=== PATIENT | male | born 1955 | race Caucasian/White ===

== ENCOUNTER 2016-08-30 23:23 | Inpatient (IN) | payer MEDICARE ==
[~2016-08-30] VITALS: Ht 180.3 cm; Wt 74.3 kg
[2016-08-30 23:23] VITALS: BP 229/124; PULSE 112; RESP 20; TEMP 98.4
[2016-08-30 23:28] VITALS: BP 215/97; PULSE 110; O2SAT 100
[2016-08-30] MEDS ORDERED: insulin (23:33)
[2016-08-30] MEDS ORDERED: SODIUM CHLOR 0.9% 1000 ML INJ 1,000 ML IV SCH (23:48)
[2016-08-31] VITALS (11 sets, daily range): BP systolic 124–224; BP diastolic 83–112; PULSE 88–116; RESP 17–20; TEMP 96.4–99.5; O2SAT 97–100
[2016-08-31] MEDS ORDERED: PROCHLORPERAZINE INJ 10 MG/2 ML VIAL IM ONE
[2016-08-31] MEDS ORDERED: diphenhydrAMINE HCL 50 MG/ML VIAL IV PUSH ONE
[2016-08-31 00:19] LABS: BASOPHIL % 0.2 % (0.0-2.0); EOSINOPHIL % 0.1 % (0.0-4.0); HEMATOCRIT 41.9 % (39.0-51.0); HEMO FLAGS DIFF FINAL; LYMPH % 7.6 % (9.0-44.0); LYMPHOCYTE # 1.2 TH/MM3 (1.0-4.8); MEAN CELL VOLUME 84.5 FL (80.0-100.0); MEAN CORPUSCULAR HEMOGLOBIN 27.8 PG (27.0-34.0); MEAN CORPUSCULAR HGB CONC 32.9 % (32.0-36.0); MONO % 2.3 % (0.0-8.0); NEUT % 89.8 % (16.0-70.0); PLATELET COUNT 253 TH/MM3 (150-450); RED BLOOD COUNT 4.96 MIL/MM3 (4.50-5.90); RED CELL DISTRIBUTION WIDTH 14.5 % (11.6-17.2); WHITE BLOOD COUNT 15.6 TH/MM3 (4.0-11.0)
--- NOTE | 2016-08-31 00:28 | PD ---
HPI Chief Complaint: General Weakness Time Seen by Provider: 23:41 Travel History International Travel<30 days: No Contact w/Intl Traveler<30days: No Traveled to known affect area: No History of Present Illness HPI Is a 60-year-old male with a history of diabetes and gastroparesis who presents to the emergency department with vomiting times today. He states is been worse the past couple days. He's had some abdominal pain with vomiting. Recent multiple previous episodes in the past but is visiting from out of town. He didn't bring any of his medicines with him except for his insulin because he left them by mistake. He is supposed to go back to [place] where he is living now tomorrow. No history of abdominal surgeries. Denies any chest pain shortness of breath or other symptoms. He has had some subjective chills. History Past Medical History Narrative Medical Gastroparesis Diabetes Hypothyroidism Hypertension Tetanus Vaccination: > 5 Years Influenza Vaccination: Yes Social History Alcohol Use: Yes (occ) Tobacco Use: No Allergies-Medications (Allergen,Severity, Reaction): Coded Allergies: No Known Allergies (Unverified , 08/30/16) Reported Meds & Prescriptions Reported Meds & Active Scripts Active Reported [insulin ] Review of Systems Except as stated in HPI: all other systems reviewed are Neg Physical Exam Narrative GENERAL: 60-year-old man, appears a little bit uncomfortable, little clammy, some occasional vomiting. SKIN: Little bit clammy. HEAD: Atraumatic. Normocephalic. EYES: Pupils equal and round. No scleral icterus. No injection or drainage. ENT: No nasal bleeding or discharge. Mucous membranes pink and moist. NECK: Trachea midline. No JVD. CARDIOVASCULAR: Regular rate and rhythm. No murmur appreciated. RESPIRATORY: No accessory muscle use. Clear to auscultation. Breath sounds equal bilaterally. GASTROINTESTINAL: Abdomen soft, non-tender, nondistended. Hepatic and splenic margins not palpable. MUSCULOSKELETAL: No obvious deformities. Data Data Last Documented VS Vital Signs Date Time Temp Pulse Resp B/P Pulse Ox O2 Delivery O2 Flow Rate FiO2 08/31/16 01:07 107 162/88 99 Room Air 08/30/16 23:23 98.4 20 Orders Complete Blood Count With Diff (08/30/16 23:48) Comprehensive Metabolic Panel (08/30/16 23:48) Lipase (08/30/16 23:48) Iv Access Insert/Monitor (08/30/16 23:48) Ecg Monitoring (08/30/16 23:48) Oximetry (08/30/16 23:48) Sodium Chlor 0.9% 1000 Ml Inj (Ns 1000 M (08/30/16 23:48) Prochlorperazine Inj (Compazine Inj) (08/31/16 00:00) Diphenhydramine Inj (Benadryl Inj) (08/31/16 00:00) Enalaprilat Inj (Vasotec Inj) (08/31/16 01:00) Ondansetron Inj (Zofran Inj) (08/31/16 03:15) Admit Order (Ed Use Only) (08/31/16 ) Place In Observation (08/31/16 ) Vital Signs (Adult) Q4H (08/31/16 03:07) Activity Oob With Assistance (08/31/16 03:07) Stain Sprayer / Telemetry .CONTINUOUS (08/31/16 03:07) Diet Npo (08/31/16 Breakfast) Sodium Chlor 0.9% 1000 Ml Inj (Ns 1000 M (08/31/16 03:00) Sodium Chloride 0.9% Flush (Ns Flush) (08/31/16 03:15) Sodium Chloride 0.9% Flush (Ns Flush) (08/31/16 09:00) Ondansetron Inj (Zofran Inj) (08/31/16 03:15) Metoclopramide Inj (Reglan Inj) (08/31/16 03:15) Basic Metabolic Panel (Bmp) (09/01/16 06:00) Complete Blood Count With Diff (09/01/16 06:00) Naloxone Inj (Narcan Inj) (08/31/16 03:15) Labs Laboratory Tests Test 08/31/16 00:00 White Blood Count 15.6 TH/MM3 Red Blood Count 4.96 MIL/MM3 Hemoglobin 13.8 GM/DL Hematocrit 41.9 % Mean Corpuscular Volume 84.5 FL Mean Corpuscular Hemoglobin 27.8 PG Mean Corpuscular Hemoglobin 32.9 % Concent Red Cell Distribution Width 14.5 % Platelet Count 253 TH/MM3 Mean Platelet Volume 8.7 FL Neutrophils (%) (Auto) 89.8 % Lymphocytes (%) (Auto) 7.6 % Monocytes (%) (Auto) 2.3 % Eosinophils (%) (Auto) 0.1 % Basophils (%) (Auto) 0.2 % Neutrophils # (Auto) 14.0 TH/MM3 Lymphocytes # (Auto) 1.2 TH/MM3 Monocytes # (Auto) 0.4 TH/MM3 Eosinophils # (Auto) 0.0 TH/MM3 Basophils # (Auto) 0.0 TH/MM3 CBC Comment DIFF FINAL Differential Comment Sodium Level 144 MEQ/L Potassium Level 3.9 MEQ/L Chloride Level 107 MEQ/L Carbon Dioxide Level 21.7 MEQ/L Anion Gap 15 MEQ/L Blood Urea Nitrogen 39 MG/DL Creatinine 1.31 MG/DL Estimat Glomerular Filtration 55 ML/MIN Rate Random Glucose 175 MG/DL Calcium Level 9.5 MG/DL Total Bilirubin 0.6 MG/DL Aspartate Amino Transf 25 U/L (AST/SGOT) Alanine Aminotransferase 19 U/L (ALT/SGPT) Alkaline Phosphatase 95 U/L Total Protein 8.6 GM/DL Albumin 4.1 GM/DL Lipase 43 U/L [facility] Medical Decision Making Medical Screen Exam Complete: Yes Emergency Medical Condition: Yes Interpretation(s) LABS: CBC remarkable for mild leukocytosis. CMP is remarkable for elevated BUN/creatinine. Glucose is 175. Lipase is 43. Differential Diagnosis Gastroparesis, electrolyte abnormality, obstruction, vomiting, sepsis, other Narrative Course Medical decision making This is a 60-year-old man presents emergency room with gastroparesis and vomiting. History of the same. Membranes medicines by mistake. Looks overall okay, little bit clammy. We'll check labs, IV fluids, antiemetics. FINAL: Patient with continuing intractable nausea vomiting. Labs are unremarkable. We'll plan on admission for symptomatic treatment. Diagnosis Primary Impression: Intractable nausea and vomiting Disposition: DISCHARGE HOME Condition: Stable Billy Bowles MD Aug 31, 2016 00:28
[2016-08-31] MEDS ORDERED: ENALAPRILAT 2.5 MG/2 ML VIAL IV PUSH ONE (01:00)
[2016-08-31 01:03] LABS: ALKALINE PHOSPHATASE 95 U/L (45-117); ALT (GPT) 19 U/L (12-78); TOTAL BILIRUBIN ADULT 0.6 MG/DL (0.2-1.0)
[2016-08-31 01:06] LABS: ANION GAP 15 MEQ/L (5-15); AST (GOT) 25 U/L (15-37); BICARBONATE 21.7 MEQ/L (21.0-32.0); BLOOD UREA NITROGEN 39 MG/DL (7-18); CHLORIDE 107 MEQ/L (98-107); GLOMERULAR FILTRATION RATE 55 ML/MIN (>89); SODIUM (NA) 144 MEQ/L (136-145)
[2016-08-31 01:07] LABS: POTASSIUM 3.9 MEQ/L (3.5-5.1)
[2016-08-31] MEDS ORDERED: ONDANSETRON HCL 4 MG/2 ML VIAL IV PUSH ONE (03:15)
[2016-08-31] MEDS ORDERED: NALOXONE HCL 0.4 MG/ML AMP IV PRN (03:15)
[2016-08-31] MEDS ORDERED: SODIUM CHLORIDE 0.9% FLUSH 10 ML FLUSH IV FLUSH PRN ×2 (03:15)
[2016-08-31] MEDS ORDERED: METOCLOPRAMIDE HCL 10 MG/2 ML VIAL IV PUSH PRN (03:15)
[2016-08-31] MEDS: SODIUM CHLOR 0.9% 1000 ML INJ 1,000 ML IV SCH ×2 (03:24→15:02)
--- NOTE | 2016-08-31 04:39 | HHI.HP ---
[facility] Non-Staff Admission Diagnosis intractable nausea vomiting Diagnoses: (1) Intractable nausea and vomiting Chief Complaint: Nausea and vomiting Travel History International Travel<30 Days: No Contact w/Intl Traveler <30 Da: No Traveled to Known Affected Are: No History of Present Illness Written by Trinh Weber, acting as scribe for Dr. Burnett on 08/31/16 at 04:36. Mr. Moralez is a 60 y/o male with gastroparesis and nausea with vomiting for 3 days. Emesis is brown in appearance. He has received compazine, benadryl, reglan, zofran and continues to dry heave while I am at the bedside. The patient is visiting from [place], [place] and moved there from [place], [place] on August 20, 2016. He reports abdominal pain from vomiting and states the pain did not precede the vomiting. He has no recorded/measured fever but reports feeling like he has been "burning up" and has had diaphoresis. Denies dysuria, hematuria, or chest pain. Last episode of intractable nausea and vomiting was about one year ago. Symptoms started after eating "a couple of chicken wings". No one else at home is sick. Reports he takes Gabapentin at home for pain but is unable to report any other medications. Review of Systems Except as stated in HPI: all other systems reviewed are Neg Past Family Social History Past Medical History Gastroparesis Hypertension Hyperlipidemia Diabetes Mellitus Hypothyroidism Denies CHF, atrial fibrillation, COPD/emphysema/asthma, liver problems, kidney problems, DVT, PE, CVA, cancer, seizures, or prostate problems. . Past Surgical History Right BKA Partial great toe amputation Right thumb reconstruction with screw placement . Reported Medications Doesn't know medications Uses a [facility] in [place] . Allergies: Coded Allergies: No Known Allergies (Unverified , 08/30/16) Active Ordered Medications Current Medications Sodium Chloride (NS 1000 ml Inj) 1,000 ml @ 1,000 mls/hr Q1H IV Last administered on 08/31/16t 00:03; Start 08/30/16 at 23:48; Stop 08/31/16 at 00:47 ; Status DC Sodium Chloride (NS Flush) 2 ml UNSCH PRN IV FLUSH FLUSH AFTER USING IV ACCESS ; Start 08/31/16 at 00:00; Status Cancel Prochlorperazine Edisylate (Compazine Inj) 10 mg ONCE ONCE IM Last administered on 08/31/16 00:02; Start 08/31/16 at 00:00; Stop 08/31/16 at 00:15 ; Status DC Diphenhydramine HCl (Benadryl Inj) 25 mg ONCE ONCE IV PUSH Last administered on 08/31/16 00:03; Start 08/31/16 at 00:00; Stop 08/31/16 at 00:15; Status DC Enalaprilat (Vasotec Inj) 2.5 mg ONCE ONCE IV PUSH Last administered on 00:54; Start 08/31/16 at 01:00; Stop 08/31/16 at 01:01; Status DC Ondansetron HCl 4 mg 4 mg ONCE ONCE IV PUSH Last administered on 08/31/16 03: 24; Start 08/31/16 at 03:15; Stop 08/31/16 at 03:16; Status DC Sodium Chloride (NS 1000 ml Inj) 1,000 ml @ 100 mls/hr Q10H IV Last administered on 08/31/16 03:24; Start 08/31/16 at 03:00 Sodium Chloride (NS Flush) 2 ml UNSCH PRN IV FLUSH FLUSH AFTER USING IV ACCESS ; Start 08/31/16 at 03:15 Sodium Chloride (NS Flush) 2 ml BID IV FLUSH ; Start 08/31/16 at 09:00 Ondansetron HCl (Zofran Inj) 4 mg Q6H PRN IVP NAUSEA OR VOMITING; Start at 03:15 Metoclopramide HCl (Reglan Inj) 5 mg Q6H PRN IV PUSH SEVERE NAUSEA /VOMITING; Start 08/31/16 at 03:15 Naloxone HCl (Narcan Inj) 0.4 mg UNSCH PRN IV SEE LABEL COMMENTS; Start at 03:15 . Family History Brother with diabetes . Social History Tobacco: quit smoking age 38 Alcohol: denies Illicit Drugs: smokes marijuana - last use was about a week prior to symptom onset . Physical Exam Vital Signs Vital Signs Date Time Temp Pulse Resp B/P Pulse Ox O2 Delivery O2 Flow Rate FiO2 08/31/16 03:15 116 224/100 100 Room Air 08/31/16 01:07 107 162/88 99 Room Air 08/31/16 00:47 112 221/112 97 Room Air 08/31/16 00:16 Room Air 08/30/16 23:28 110 215/97 100 Room Air 08/30/16 23:23 98.4 112 20 229/124 Physical Exam GENERAL: This is a chronically ill-appearing male patient, in no apparent distress. SKIN: No rashes, ecchymoses or lesions. Cool and dry. HEAD: Atraumatic. Normocephalic. EYES: No scleral icterus. No injection or drainage. ENT: Nose without bleeding, purulent drainage. NECK: Trachea midline. No JVD or lymphadenopathy. CARDIOVASCULAR: Regular rate and rhythm without murmurs, gallops, or rubs. RESPIRATORY: Clear to auscultation. Breath sounds equal bilaterally. No wheezes , rales, or rhonchi. GASTROINTESTINAL: Abdomen soft, nondistended. No guarding. Abdomen slightly tender with palpation. MUSCULOSKELETAL: Extremities without clubbing, cyanosis, or edema. No calf tenderness. 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 NEUROLOGICAL: Awake and alert. Motor and sensory grossly within normal limits. Normal speech. . Laboratory Laboratory Tests Test 08/31/16 00:00 White Blood Count 15.6 Red Blood Count 4.96 Hemoglobin 13.8 Hematocrit 41.9 Mean Corpuscular Volume 84.5 Mean Corpuscular Hemoglobin 27.8 Mean Corpuscular Hemoglobin 32.9 Concent Red Cell Distribution Width 14.5 Platelet Count 253 Mean Platelet Volume 8.7 Neutrophils (%) (Auto) 89.8 Lymphocytes (%) (Auto) 7.6 Monocytes (%) (Auto) 2.3 Eosinophils (%) (Auto) 0.1 Basophils (%) (Auto) 0.2 Neutrophils # (Auto) 14.0 Lymphocytes # (Auto) 1.2 Monocytes # (Auto) 0.4 Eosinophils # (Auto) 0.0 Basophils # (Auto) 0.0 CBC Comment DIFF FINAL Differential Comment Sodium Level 144 Potassium Level 3.9 Chloride Level 107 Carbon Dioxide Level 21.7 Anion Gap 15 Blood Urea Nitrogen 39 Creatinine 1.31 Estimat Glomerular Filtration 55 Rate Random Glucose 175 Calcium Level 9.5 Total Bilirubin 0.6 Aspartate Amino Transf 25 (AST/SGOT) Alanine Aminotransferase 19 (ALT/SGPT) Alkaline Phosphatase 95 Total Protein 8.6 Albumin 4.1 Lipase 43 Result Diagram: 08/31/16 0000 08/31/16 0000 Assessment and Plan Problem List: (1) Intractable nausea and vomiting ICD Code: R11.2 Status: Acute Assessment and Plan Intractable Nausea and Vomiting - will give Ativan 1 mg IV in an attempt to treat nausea and vomiting - Zofran 4 mg IV q6h PRN nausea/vomiting - Reglan 5 mg IV q6h PRN nausea/vomiting - IVF hydration with NS at 100 cc/hr Patient does not know the names of his medications Please contact patient's pharmacy: [facility] [place], [place] to get medication reconciliation completed DVT prophylaxis - Lovenox 40 mg subq q24h Discussed Condition With ER physician, RN, and patient . Physician Certification 2 Midnight Certification Type: Admission for Inpatient Services Order for Inpatient Services The services are ordered in accordance with Medicare regulations or non- Medicare payer requirements, as applicable. In the case of services not specified as inpatient-only, they are appropriately provided as inpatient services in accordance with the 2-midnight benchmark. Estimated LOS (days): 3 days is the estimated time the patient will need to remain in the hospital, assuming treatment plan goals are met and no additional complications. Post-Hospital Plan: Home Trinh Weber Aug 31, 2016 04:39
[2016-08-31] MEDS ORDERED: LORazepam 2 MG/ML VIAL IV PUSH ONE (04:45)
[2016-08-31] MEDS: ENOXAPARIN SODIUM 40 MG/0.4 ML SYRINGE SQ SCH (06:00)
[2016-08-31] MEDS ORDERED: DEXTROSE 50% IN WATER 50 ML VIAL(D50) IV PRN (10:45)
[2016-08-31] MEDS ORDERED: GLUCAGON 1 MG/ML VIAL OTHER PRN (10:45)
[2016-08-31] MEDS ORDERED: LOSA100T PO (11:33)
[2016-08-31] MEDS ORDERED: TOPI1TAB97 PO (11:33)
[2016-08-31] MEDS ORDERED: GABA800T PO (11:33)
[2016-08-31] MEDS ORDERED: NOVOINJ3 SQ (11:33)
[2016-08-31] MEDS ORDERED: METO100T PO (11:33)
[2016-08-31] MEDS ORDERED: LEVO100T5 PO (11:33)
[2016-08-31] MEDS ORDERED: PANT40TA3 PO (11:33)
[2016-08-31] MEDS ORDERED: LANTUS2P SQ (11:34)
--- NOTE | 2016-08-31 11:34 | HHI.PR ---
Subjective Remarks Follow-up for nausea and vomiting. The patient is feeling better today. He denies any further nausea. No vomiting overnight. He would like to try to eat. He does have a history of gastroparesis. He denies any abdominal pain or diarrhea. He denies any fever, chills, or shortness of breath. Patient's BP is currently elevated. He does take insulin blood pressure medications at home. Discussed with RN, home medicines were reconciled from the patient's daughter, will restart. The patient is hoping to go back to [place] soon. Objective Vitals Vital Signs Date Time Temp Pulse Resp B/P Pulse Ox O2 Delivery O2 Flow Rate FiO2 08/31/16 07:45 97.2 104 18 168/83 99 08/31/16 06:00 99.5 104 17 124/96 98 08/31/16 05:29 96 Room Air 08/31/16 05:06 106 20 155/91 100 Room Air 08/31/16 03:15 116 224/100 100 Room Air 08/31/16 01:07 107 162/88 99 Room Air 08/31/16 00:47 112 221/112 97 Room Air 08/31/16 00:16 Room Air 08/30/16 23:28 110 215/97 100 Room Air 08/30/16 23:23 98.4 112 20 229/124 I/O 08/30/16 08/30/16 08/30/16 08/31/16 08/31/16 08/31/16 07:00 15:00 23:00 07:00 15:00 23:00 Intake Total 0 ml Balance 0 ml Intake Oral 0 ml # Voids 0 # Bowel Movements 0 Result Diagram: 08/31/16 0000 08/31/16 0000 Objective Remarks GENERAL: Well-developed well-nourished. In no acute distress. SKIN: Warm and dry. No lesions noted. HEENT: Normocephalic. Pupils equal and round. Mucous membranes pink and moist. CARDIOVASCULAR: Regular rate and rhythm. No murmur appreciated. RESPIRATORY: No accessory muscle use. Clear to auscultation. Breath sounds equal bilaterally. GASTROINTESTINAL: Abdomen soft, non-tender, nondistended. Bowel sounds x4. MUSCULOSKELETAL: Right BKA. No clubbing or cyanosis. No edema. NEUROLOGICAL: Awake and alert. No focal neurological deficits. Moves upper and lower extremities spontaneously. Normal speech. PSYCHIATRIC: Appropriate mood and affect; insight and judgment normal. A/P Problem List: (1) Intractable nausea and vomiting ICD Code: R11.2 Status: Acute Assessment and Plan 60-year-old male with a past medical history of diabetes mellitus with neuropathy and gastroparesis and hypertension who presented with intractable nausea and vomiting Intractable nausea and vomiting in a patient with a history of gastroparesis: Symptoms improving. -ADAT, clear liquids for now -IVF -Zofran and Reglan as needed -Follow up BMP SIRS: Tachycardia, WBC 15.6, Tmax 99.5. Possibly from GI process as above. -Follow up CBC -Monitor for further signs of infection Accelerated hypertension: Secondary missing home BP meds. Will reconcile and resume home medication. Monitor. Diabetes mellitus: Hyperglycemic protocol. Monitor Accu-Cheks. Sliding scale coverage if needed. Resume home basal insulin if tolerating diet. DVT prophylaxis: SCDs Discharge Planning Continue to monitor clinical progress. Gera Best Aug 31, 2016 11:34
[2016-08-31] MEDS: PANTOPRAZOLE SODIUM 40 MG VIAL IV PUSH SCH (14:52)
[2016-08-31] MEDS: LOSARTAN 50 MG TAB PO SCH (14:52)
[2016-08-31] MEDS: ONDANSETRON HCL 4 MG/2 ML VIAL IVP PRN (14:54)
[2016-08-31] MEDS: SODIUM CHLORIDE 0.9% FLUSH 10 ML FLUSH IV FLUSH SCH ×2 (15:06→20:35)
[2016-08-31] MEDS: INSULIN ASPART SUPPLEMENTAL SCALE SQ SCH ×3 (15:06→20:38)
[2016-08-31] MEDS: GABAPENTIN 400 MG CAP PO SCH (18:10)
[2016-08-31] MEDS: METOPROLOL TARTRATE 100 MG TAB PO SCH (20:35)
[2016-08-31] MEDS: TOPIRAMATE 25 MG TAB PO SCH (20:35)
[2016-08-31] MEDS ORDERED: INSULIN DETEMIR 100 UNITS/ML VIAL SQ SCH (21:00)
[2016-08-31 22:17] LABS: AUTOMATED NEUTROPHIL # 8.7 TH/MM3 (1.8-7.7); BASOPHIL % 0.3 % (0.0-2.0); EOSINOPHIL % 0.1 % (0.0-4.0); HEMATOCRIT 35.2 % (39.0-51.0); HEMO FLAGS DIFF FINAL; LYMPH % 16.6 % (9.0-44.0); LYMPHOCYTE # 1.9 TH/MM3 (1.0-4.8); MEAN CELL VOLUME 85.8 FL (80.0-100.0); MEAN CORPUSCULAR HEMOGLOBIN 28.9 PG (27.0-34.0); MEAN CORPUSCULAR HGB CONC 33.7 % (32.0-36.0); MONO % 8.7 % (0.0-8.0); NEUT % 74.3 % (16.0-70.0); PLATELET COUNT 233 TH/MM3 (150-450); RED CELL DISTRIBUTION WIDTH 14.4 % (11.6-17.2); WHITE BLOOD COUNT 11.7 TH/MM3 (4.0-11.0)
[2016-08-31 22:35] LABS: BICARBONATE 26.3 MEQ/L (21.0-32.0); POTASSIUM 3.3 MEQ/L (3.5-5.1)
[2016-09-01] VITALS (8 sets, daily range): BP systolic 119–203; BP diastolic 66–102; PULSE 55–70; RESP 16–18; TEMP 97.3–98.3; O2SAT 96–100
[2016-09-01] MEDS: LEVOTHYROXINE SODIUM 100 MCG TAB PO SCH (06:21)
[2016-09-01] MEDS: INSULIN ASPART SUPPLEMENTAL SCALE SQ SCH ×4 (06:22→21:26)
[2016-09-01] MEDS: ENOXAPARIN SODIUM 40 MG/0.4 ML SYRINGE SQ SCH (06:22)
[2016-09-01 06:59] LABS: BICARBONATE 24.4 MEQ/L (21.0-32.0); POTASSIUM 3.7 MEQ/L (3.5-5.1)
[2016-09-01 07:25] LABS: AUTOMATED NEUTROPHIL # 7.5 TH/MM3 (1.8-7.7); BASOPHIL # 0.3 TH/MM3 (0-0.2); BASOPHIL % 2.7 % (0.0-2.0); EOSINOPHIL # 0.1 TH/MM3 (0-0.4); HEMATOCRIT 38.6 % (39.0-51.0); HEMO FLAGS DIFF FINAL; LYMPH % 22.1 % (9.0-44.0); LYMPHOCYTE # 2.4 TH/MM3 (1.0-4.8); MEAN CELL VOLUME 85.3 FL (80.0-100.0); MEAN CORPUSCULAR HEMOGLOBIN 28.8 PG (27.0-34.0); MEAN CORPUSCULAR HGB CONC 33.8 % (32.0-36.0); MONO % 6.4 % (0.0-8.0); NEUT % 67.8 % (16.0-70.0); PLATELET COUNT 162 TH/MM3 (150-450); RED BLOOD COUNT 4.52 MIL/MM3 (4.50-5.90); RED CELL DISTRIBUTION WIDTH 14.6 % (11.6-17.2); WHITE BLOOD COUNT 11.1 TH/MM3 (4.0-11.0)
[2016-09-01] MEDS: LOSARTAN 50 MG TAB PO SCH (09:53)
[2016-09-01] MEDS: GABAPENTIN 400 MG CAP PO SCH ×3 (09:53→17:43)
[2016-09-01] MEDS: METOPROLOL TARTRATE 100 MG TAB PO SCH ×2 (09:53→21:13)
[2016-09-01] MEDS: TOPIRAMATE 25 MG TAB PO SCH ×2 (09:53→21:13)
[2016-09-01] MEDS: PANTOPRAZOLE SODIUM 40 MG VIAL IV PUSH SCH (09:54)
[2016-09-01] MEDS: SODIUM CHLORIDE 0.9% FLUSH 10 ML FLUSH IV FLUSH SCH ×2 (09:57→21:14)
[2016-09-01] MEDS: SODIUM CHLOR 0.9% 1000 ML INJ 1,000 ML IV SCH ×2 (09:58→21:14)
--- NOTE | 2016-09-01 12:12 | HHI.PR ---
Subjective Remarks The patient reported continued nausea and vomiting. He did say he was able to eat a little bit of his food. He said he'd be willing to stay in the hospital until he feels better. He believes his nausea is from his gastroparesis. Discussed with nursing. Objective Vitals Vital Signs Date Time Temp Pulse Resp B/P Pulse Ox O2 Delivery O2 Flow Rate FiO2 09/01/16 08:00 97.6 64 16 149/83 100 09/01/16 04:45 97.9 55 18 119/70 99 09/01/16 00:50 98.3 70 18 149/80 99 08/31/16 20:45 98.0 98 18 142/88 98 08/31/16 20:20 88 08/31/16 15:49 97.3 102 18 162/90 97 I/O 08/31/16 08/31/16 08/31/16 09/01/16 09/01/16 09/01/16 07:00 15:00 23:00 07:00 15:00 23:00 Intake Total 0 ml 740 ml 890 ml 240 ml Output Total 600 ml Balance 0 ml 740 ml 890 ml -360 ml Intake Oral 0 ml 740 ml 240 ml 240 ml IV Total 650 ml Output Urine Total 600 ml # Voids 0 2 0 # Bowel Movements 0 0 0 0 Result Diagram: 09/01/16 0559 09/01/16 0559 Objective Remarks GENERAL: Appears uncomfortable. SKIN: Warm and dry. No lesions noted. HEENT: Normocephalic. Pupils equal and round. Mucous membranes pink and moist. CARDIOVASCULAR: Regular rate and rhythm. No murmur appreciated. RESPIRATORY: No accessory muscle use. Clear to auscultation. Breath sounds equal bilaterally. GASTROINTESTINAL: Abdomen soft, non-tender, nondistended. Bowel sounds x4. MUSCULOSKELETAL: Right BKA. No clubbing or cyanosis. No edema. NEUROLOGICAL: Awake and alert. No focal neurological deficits. Moves upper and lower extremities spontaneously. Normal speech. PSYCHIATRIC: Flat affect. Medications and IVs Current Medications Medications (Trade) Dose Ordered Sig/León Route Start Time Stop Time Status Last Admin (NS 1000 ml Inj) 1,000 ml @ 100 mls/hr Q10H IV 08/31/16 03:00 09/01/16 09:58 (NS Flush) 2 ml UNSCH PRN IV FLUSH 08/31/16 03:15 (NS Flush) 2 ml BID IV FLUSH 08/31/16 09:00 09/01/16 09:57 (Zofran Inj) 4 mg Q6H PRN IVP 08/31/16 03:15 08/31/16 14:54 (Reglan Inj) 5 mg Q6H PRN IV PUSH 08/31/16 03:15 08/31/16 04:58 (Narcan Inj) 0.4 mg UNSCH PRN IV 08/31/16 03:15 (Lovenox Inj) 40 mg Q24H SQ 08/31/16 06:00 09/01/16 06:22 (D50w (Vial) Inj) 50 ml UNSCH PRN IV 08/31/16 10:45 (Glucagon Inj) 1 mg UNSCH PRN OTHER 08/31/16 10:45 (Neurontin) 800 mg TID PO 08/31/16 18:00 09/01/16 09:53 (Levemir Inj) 22 units HS SQ 08/31/16 21:00 08/31/16 20:38 (Synthroid) 100 mcg DAILY@06 PO 09/01/16 06:00 09/01/16 06:21 (Cozaar) 100 mg DAILY PO 08/31/16 14:00 09/01/16 09:53 (Lopressor) 100 mg BID PO 08/31/16 21:00 09/01/16 09:53 (Topamax) 25 mg BID PO 08/31/16 21:00 09/01/16 09:53 (Protonix Inj) 40 mg DAILY IV PUSH 08/31/16 14:15 09/01/16 09:54 A/P Problem List: (1) Intractable nausea and vomiting ICD Code: R11.2 Status: Acute Assessment and Plan 60-year-old male with a past medical history of diabetes mellitus with neuropathy and gastroparesis and hypertension who presented with intractable nausea and vomiting Intractable nausea and vomiting in a patient with a history of gastroparesis Remains nauseous. -ADAT. -IVF - standing Reglan. Zofran as needed. - KUB. CT abdomen if no improvement. SIRS: Tachycardia, WBC 15.6, Tmax 99.5. -Follow up CBC. Improved. -Monitor for further signs of infection Accelerated hypertension: Secondary to missing home BP meds. Will reconcile and resume home medication. Monitor. - improved on home meds. Diabetes mellitus: Hyperglycemic protocol. Monitor Accu-Cheks. Sliding scale coverage if needed. - decrease basal insulin as not tolerating much of a diet. - insulin sliding scale. DVT prophylaxis: SCDs Discharge Planning Awaiting clinical improvement Zachary Dominguez DO Sep 01, 2016 12:12
[2016-09-01] MEDS: ONDANSETRON HCL 4 MG/2 ML VIAL IVP PRN (12:24)
--- NOTE | 2016-09-01 14:35 | RADRPT ---
EXAM DATE/TIME: 09/01/2016 13:53 [place] COMPARISON: No previous studies available for comparison. INDICATIONS : Nausea and vomiting. MEDICAL HISTORY : Gastroparesis. SURGICAL HISTORY : Amputation, right leg. ENCOUNTER: Initial ACUITY: 3 days PAIN SCORE: 0/10 LOCATION: abdomen FINDINGS: The bowel gas is nonspecific. There are no signs of obstruction or free air for technique. No defini te calcified stones are identified for technique. CONCLUSION: Nonspecific abdomen. Austen Kirk MD on September 01, 2016 at 14:33 Board Certified Radiologist. This report was verified electronically.
[2016-09-01] MEDS: ENALAPRILAT 2.5 MG/2 ML VIAL IV PUSH PRN (14:50)
[2016-09-01] MEDS: METOCLOPRAMIDE HCL 10 MG/2 ML VIAL IV PUSH SCH (17:44)
[2016-09-01] MEDS ORDERED: INSULIN DETEMIR 100 UNITS/ML VIAL SQ SCH (21:00)
[2016-09-02] VITALS (7 sets, daily range): BP systolic 137–214; BP diastolic 77–104; PULSE 53–67; RESP 16–18; TEMP 96.2–98.5; O2SAT 93–99
[2016-09-02] MEDS: SODIUM CHLOR 0.9% 1000 ML INJ 1,000 ML IV SCH ×3 (05:30→22:18)
[2016-09-02] MEDS: LEVOTHYROXINE SODIUM 100 MCG TAB PO SCH (05:30)
[2016-09-02] MEDS: ENOXAPARIN SODIUM 40 MG/0.4 ML SYRINGE SQ SCH (05:31)
[2016-09-02] MEDS: INSULIN ASPART SUPPLEMENTAL SCALE SQ SCH ×4 (05:31→22:16)
[2016-09-02 07:12] LABS: HEMATOCRIT 36.4 % (39.0-51.0); MEAN CELL VOLUME 85.5 FL (80.0-100.0); MEAN CORPUSCULAR HEMOGLOBIN 29.3 PG (27.0-34.0); MEAN CORPUSCULAR HGB CONC 34.2 % (32.0-36.0); PLATELET COUNT 198 TH/MM3 (150-450); RED BLOOD COUNT 4.25 MIL/MM3 (4.50-5.90); RED CELL DISTRIBUTION WIDTH 14.4 % (11.6-17.2); REVIEW FLAG FINAL; WHITE BLOOD COUNT 9.6 TH/MM3 (4.0-11.0)
[2016-09-02 07:37] LABS: BICARBONATE 25.5 MEQ/L (21.0-32.0); MAGNESIUM 1.8 MG/DL (1.5-2.5); POTASSIUM 3.4 MEQ/L (3.5-5.1)
[2016-09-02] MEDS: METOPROLOL TARTRATE 100 MG TAB PO SCH ×2 (08:11→22:17)
[2016-09-02] MEDS: LOSARTAN 50 MG TAB PO SCH (08:11)
[2016-09-02] MEDS: TOPIRAMATE 25 MG TAB PO SCH ×2 (08:11→22:18)
[2016-09-02] MEDS: METOCLOPRAMIDE HCL 10 MG/2 ML VIAL IV PUSH SCH ×3 (08:11→18:39)
[2016-09-02] MEDS: GABAPENTIN 400 MG CAP PO SCH ×3 (08:11→18:37)
[2016-09-02] MEDS: ENALAPRILAT 2.5 MG/2 ML VIAL IV PUSH PRN (08:12)
[2016-09-02] MEDS: SODIUM CHLORIDE 0.9% FLUSH 10 ML FLUSH IV FLUSH SCH ×2 (08:16→22:18)
[2016-09-02] MEDS: PANTOPRAZOLE SODIUM 40 MG VIAL IV PUSH SCH (08:17)
[2016-09-02] MEDS ORDERED: amLODIPine BESYLATE 5 MG TAB PO SCH (12:00)
[2016-09-02] MEDS ORDERED: POTASSIUM CHLORIDE 25 MEQ EFFERVESCENT TAB PO ONE (12:00)
[2016-09-02] MEDS ORDERED: AMLO5 PO (13:11)
[2016-09-02] MEDS ORDERED: LANTUS2P SQ (13:11)
[2016-09-02] MEDS ORDERED: REGL5TAB PO (13:11)
[2016-09-02] MEDS ORDERED: NOVOINJ3 SQ (13:11)
--- NOTE | 2016-09-02 13:12 | HHI.DCPOC ---
Discharge Care Plan Diagnosis: (1) Intractable nausea and vomiting (2) Diabetic gastroparesis (3) Accelerated hypertension Goals to Promote Your Health * To prevent worsening of your condition and complications * To maintain your health at the optimal level Directions to Meet Your Goals Take your medications as prescribed Follow your dietary instruction Follow activity as directed Keep your appointments as scheduled Take your immunizations and boosters as scheduled If your symptoms worsen call your PCP, if no PCP go to Urgent Care Center or Emergency Room Smoking is Dangerous to Your Health. Avoid second hand smoke Call the 24-hour hour crisis hotline for domestic abuse at Zachary Dominguez DO Sep 02, 2016 13:12
[2016-09-02] MEDS ORDERED: POTA-163 PO (13:13)
--- NOTE | 2016-09-02 13:22 | HHI.DS ---
Discharge Summary Admission Date Aug 31, 2016 at 04:41 Discharge Date: Sep 02, 2016 Admitting Diagnosis intractable nausea vomiting (1) Intractable nausea and vomiting ICD Code: R11.2 Diagnosis: Principal (2) Diabetic gastroparesis ICD Code: E11.43 Diagnosis: Principal (3) Accelerated hypertension ICD Code: I10 Diagnosis: Principal Procedures None Brief History - From Admission Written by Trinh Weber, acting as scribe for Dr. Burnett on 08/31/16 at 04:36. Mr. Moralez is a 60 y/o male with gastroparesis and nausea with vomiting for 3 days. Emesis is brown in appearance. He has received compazine, benadryl, reglan, zofran and continues to dry heave while I am at the bedside. The patient is visiting from [place], [place] and moved there from [place], [place] on August 20, 2016. He reports abdominal pain from vomiting and states the pain did not precede the vomiting. He has no recorded/measured fever but reports feeling like he has been "burning up" and has had diaphoresis. Denies dysuria, hematuria, or chest pain. Last episode of intractable nausea and vomiting was about one year ago. Symptoms started after eating "a couple of chicken wings". No one else at home is sick. Reports he takes Gabapentin at home for pain but is unable to report any other medications. CBC/BMP: 09/02/16 0629 09/02/16 0629 Significant Findings Laboratory Tests Test 08/31/16 08/31/16 09/01/16 09/02/16 00:00 21:19 05:59 06:29 White Blood Count 15.6 TH/MM3 11.7 TH/MM3 11.1 TH/MM3 (4.0-11.0) (4.0-11.0) (4.0-11.0) Neutrophils (%) (Auto) 89.8 % 74.3 % (16.0-70.0) (16.0-70.0) Lymphocytes (%) (Auto) 7.6 % (9.0-44.0) Neutrophils # (Auto) 14.0 TH/MM3 8.7 TH/MM3 (1.8-7.7) (1.8-7.7) Blood Urea Nitrogen 39 MG/DL (7-18) 36 MG/DL (7-18) 30 MG/DL (7-18) Creatinine 1.31 MG/DL 1.32 MG/DL (0.60-1.30) (0.60-1.30) Estimat Glomerular Filtration 55 ML/MIN (>89) 55 ML/MIN (>89) 82 ML/MIN (>89) Rate Random Glucose 175 MG/DL 208 MG/DL (74-106) (74-106) Total Protein 8.6 GM/DL (6.4-8.2) Lipase 43 U/L (73-393) Red Blood Count 4.10 MIL/MM3 4.25 MIL/MM3 (4.50-5.90) (4.50-5.90) Hemoglobin 11.9 GM/DL 12.4 GM/DL (13.0-17.0) (13.0-17.0) Hematocrit 35.2 % 38.6 % 36.4 % (39.0-51.0) (39.0-51.0) (39.0-51.0) Monocytes (%) (Auto) 8.7 % (0.0-8.0) Monocytes # (Auto) 1.0 TH/MM3 (0-0.9) Potassium Level 3.3 MEQ/L 3.4 MEQ/L (3.5-5.1) (3.5-5.1) Chloride Level 110 MEQ/L 110 MEQ/L (98-107) (98-107) Basophils (%) (Auto) 2.7 % (0.0-2.0) Basophils # (Auto) 0.3 TH/MM3 (0-0.2) Calcium Level 8.1 MG/DL (8.5-10.1) Imaging Last Impressions Abdomen X-Ray 09/01/16 0000 Signed Impressions: Service Date/Time: Thursday, September 01, 2016 13:53 - CONCLUSION: Nonspecific abdomen. Austen Kirk MD PE at Discharge GENERAL: Resting comfortably. SKIN: Warm and dry. No lesions noted. HEENT: Normocephalic. Pupils equal and round. Mucous membranes pink and moist. CARDIOVASCULAR: Regular rate and rhythm. No murmur appreciated. RESPIRATORY: No accessory muscle use. Clear to auscultation. Breath sounds equal bilaterally. GASTROINTESTINAL: Abdomen soft, non-tender, nondistended. Bowel sounds x4. MUSCULOSKELETAL: Right BKA. No clubbing or cyanosis. No edema. NEUROLOGICAL: Awake and alert. No focal neurological deficits. Moves upper and lower extremities spontaneously. Normal speech. PSYCHIATRIC: Flat affect. Pt update on day of discharge The patient said that his nausea has improved greatly. He says he was tolerating a diet and was looking for more food. He said his blood pressure tends to run high. He said his family could drive down from [place] to pick him up [place]. Discussed with nursing and case management. Hospital Course Intractable nausea and vomiting The pt has a history of diabetic gastroparesis. He received an IV PPI and antiemetics as needed. He was given IVFs. KUB was unremarkable. He was started on standing Reglan and his symptoms improved greatly. His diet was advanced. 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 Accelerated hypertension Blood pressure fluctuated significantly. His home meds were resumed. He received Vasotec as needed. Amlodipine 5 mg daily was added. He will follow up with his PCP. Diabetes mellitus Glucose has been low s/t decreased PO intake. He was on the hyperglycemic protocol. We monitored Accu-Cheks. He had sliding scale coverage. We decreased his basal insulin as not tolerating much of a diet at first. He will gradually resume his home regimen as his diet returns to normal. He will follow up with his PCP. Pt Condition on Discharge: Stable Discharge Disposition: Discharge Home Discharge Time: > 30 minutes Discharge Instructions DIET: Follow Instructions for: Diabetic Diet Activities you can perform: Weight Bearing as Man Follow up Referrals: Gastroenterology - 1 Week PCP Follow-up - 1 Week New Medications: Metoclopramide (Reglan) 5 Mg Tab 5 MG PO TIDAC Gastroparesis #21 Ref 0 TAB Potassium Chloride ER (Potassium Chloride ER) 20 Meq Tab 20 MEQ PO DAILY Electrolyte Replacement #7 Ref 0 TAB Amlodipine (Norvasc) 5 Mg Tab 5 MG PO DAILY Blood Pressure Management #30 TAB Changed Medications: Insulin Aspart Inj (Novolog Flexpen Inj) 300 Unit/3 Ml Pen 4 UNITS SQ BID Resume once glucose levels become elevated and you are tolerating a regular diet Blood Sugar Management #0 Ref 0 PEN (Medication details modified) Insulin Glargine Inj (Lantus Inj) 1,000 Unit/10 Ml Vial 22 UNITS SQ HS Please start at lower dose of 10 and increase back to normal home dose as your diet has normalized Blood Sugar Management Days 0 Ref 0 VIAL ( Medication details modified) Continued Medications: Gabapentin (Gabapentin) 800 Mg Tab 800 MG PO TID Ref 0 TAB Levothyroxine (Levothyroxine) 100 Mcg Tab 100 MCG PO DAILY Thyroid Ref 0 TAB Losartan (Losartan) 100 Mg Tab 100 MG PO DAILY Blood Pressure Management Ref 0 TAB Metoprolol Tartrate (Metoprolol Tartrate) 100 Mg Tab 100 MG PO BID Blood Pressure Management Ref 0 TAB Pantoprazole (Pantoprazole) 40 Mg Tab 40 MG PO DAILY PRN Reflux Ref 0 TAB Topiramate (Topiramate) 25 Mg Tab 25 MG PO BID Control Seizures Ref 0 TAB ([insulin ]) Zachary Dominguez DO Sep 02, 2016 13:22
--- NOTE | 2016-09-02 15:15 | HHI.PR ---
Subjective Remarks The patient said he felt a lot better. He has not been vomiting. He has been tolerating a diet. He says his blood pressure generally runs high. He said that his relatives would be able to pick him up tonight. Discussed with nursing. Objective Vitals Vital Signs Date Time Temp Pulse Resp B/P Pulse Ox O2 Delivery O2 Flow Rate FiO2 09/02/16 12:00 96.2 65 18 183/91 93 09/02/16 09:00 197/83 09/02/16 08:00 98.5 65 18 214/104 98 09/02/16 04:35 97.7 53 16 137/77 97 09/01/16 23:50 98.2 59 17 140/78 96 09/01/16 20:00 61 09/01/16 19:40 97.8 62 18 123/66 97 09/01/16 16:00 97.3 57 16 189/89 96 I/O 09/01/16 09/01/16 09/01/16 09/02/16 09/02/16 09/02/16 07:00 15:00 23:00 07:00 15:00 23:00 Intake Total 240 ml 330 ml 480 ml 240 ml Output Total 600 ml 300 ml 600 ml 500 ml Balance -360 ml 30 ml -120 ml -260 ml Intake Oral 240 ml 330 ml 480 ml 240 ml Output Urine Total 600 ml 300 ml 600 ml 500 ml # Bowel Movements 0 0 0 0 Result Diagram: 09/02/16 0629 09/02/16 0629 Imaging Last Impressions Abdomen X-Ray 09/01/16 0000 Signed Impressions: Service Date/Time: Thursday, September 01, 2016 13:53 - CONCLUSION: Nonspecific abdomen. KSilvia Kirk MD Objective Remarks GENERAL: Resting comfortably. SKIN: Warm and dry. No lesions noted. HEENT: Normocephalic. Pupils equal and round. Mucous membranes pink and moist. CARDIOVASCULAR: Regular rate and rhythm. No murmur appreciated. RESPIRATORY: No accessory muscle use. Clear to auscultation. Breath sounds equal bilaterally. GASTROINTESTINAL: Abdomen soft, non-tender, nondistended. Bowel sounds x4. MUSCULOSKELETAL: Right BKA. No clubbing or cyanosis. No edema. NEUROLOGICAL: Awake and alert. No focal neurological deficits. Moves upper and lower extremities spontaneously. Normal speech. PSYCHIATRIC: Flat affect. Procedures None Medications and IVs Current Medications Medications (Trade) Dose Ordered Sig/León Route Start Time Stop Time Status Last Admin (NS 1000 ml Inj) 1,000 ml @ 100 mls/hr Q10H IV 08/31/16 03:00 09/02/16 05:30 (NS Flush) 2 ml UNSCH PRN IV FLUSH 08/31/16 03:15 09/01/16 14:53 (NS Flush) 2 ml BID IV FLUSH 08/31/16 09:00 09/02/16 08:16 (Zofran Inj) 4 mg Q6H PRN IVP 08/31/16 03:15 09/01/16 12:24 (Narcan Inj) 0.4 mg UNSCH PRN IV 08/31/16 03:15 (Lovenox Inj) 40 mg Q24H SQ 08/31/16 06:00 09/02/16 05:31 (D50w (Vial) Inj) 50 ml UNSCH PRN IV 08/31/16 10:45 (Glucagon Inj) 1 mg UNSCH PRN OTHER 08/31/16 10:45 (Neurontin) 800 mg TID PO 08/31/16 18:00 09/02/16 13:11 (Synthroid) 100 mcg DAILY@06 PO 09/01/16 06:00 09/02/16 05:30 (Cozaar) 100 mg DAILY PO 08/31/16 14:00 09/02/16 08:11 (Lopressor) 100 mg BID PO 08/31/16 21:00 09/02/16 08:11 (Topamax) 25 mg BID PO 08/31/16 21:00 09/02/16 08:11 (Protonix Inj) 40 mg DAILY IV PUSH 08/31/16 14:15 09/02/16 08:17 (Reglan Inj) 5 mg TIDAC IV PUSH 09/01/16 12:05 09/02/16 13:12 (Vasotec Inj) 2.5 mg Q6H PRN IV PUSH 09/01/16 13:45 09/02/16 08:12 (Norvasc) 5 mg DAILY PO 09/02/16 12:00 09/02/16 13:14 (Levemir Inj) 5 units HS SQ 09/02/16 21:00 A/P Problem List: (1) Intractable nausea and vomiting ICD Code: R11.2 Status: Acute (2) Diabetic gastroparesis ICD Code: E11.43 Status: Acute (3) Accelerated hypertension ICD Code: I10 Status: Acute Assessment and Plan 60-year-old male with a past medical history of diabetes mellitus with neuropathy and gastroparesis and hypertension who presented with intractable nausea and vomiting Intractable nausea and vomiting The patient has a history of gastroparesis. Improved. KUB unremarkable. - ADAT. - IVF. - standing Reglan. Zofran as needed. SIRS: Tachycardia, WBC 15.6, Tmax 99.5. -Follow up CBC. Improved. -Monitor for further signs of infection Accelerated hypertension The patient says his blood pressure generally runs high. - Continue home medications. Add amlodipine 5 mg by mouth daily. Diabetes mellitus Glucose has been running low because he has not been eating much. - Monitor Accu-Cheks. - Sliding scale coverage if needed. - decrease basal insulin as not tolerating much of a diet. Gradually increase to home dose as diet normalizes. - insulin sliding scale. DVT prophylaxis: SCDs Discharge Planning Discharge home later today if blood pressure improves Zachary Dominguez DO Sep 02, 2016 15:15
[2016-09-02] MEDS ORDERED: INSULIN DETEMIR 100 UNITS/ML VIAL SQ SCH (21:00)
== END 2016-09-03 03:00 | disposition home or self-care (01) | DRG 74 ==
LOC: NEPE 23:23 → NEDA 08-31 03:08 → OBSVTOIN 08-31 04:41 → N06B 08-31 05:47
PROVIDERS: ADMIT Hospitalist; ATTEND Hospitalist
DX: E11.43 Type 2 diabetes mellitus with diabetic autonomic (poly)neuropathy (principal); I10 Essential (primary) hypertension; K31.84 Gastroparesis; E03.9 Hypothyroidism, unspecified; R00.0 Tachycardia, unspecified; E78.5 Hyperlipidemia, unspecified; Z89.511 Acquired absence of right leg below knee; Z87.891 Personal history of nicotine dependence; Z79.4 Long term (current) use of insulin
CPT/HCPCS: 74000; 76937; 80048; 80053; 82948; 83690; 83735; 85025; 85027; 96361; 96372; 96374; 96375; C9113; J0780; J1200; J1650; J1815; J2060; J2405; J2765; J7030